=== PATIENT | female | born 1995 | race African-American/Black ===

== ENCOUNTER 2016-12-05 10:38 | Emergency (ER) | payer BC, OTHER ==
[~2016-12-05] VITALS: Ht 185.4 cm; Wt 104.3 kg
[~2016-12-05 10:38] MED LIST: APAP/CODEINE ELI5 M1 OR; FLINTSTONES M100 MCG; IBUPROFEN 600600 M1 PO; KEFLEX500 MG PO; MAALOX ADVANCE355 M1 PO; NORCO 5-325 TA1 EACH PO; PHENERGAN 25 MG25 M1 PO; PREDNISONE50 MG PO; VICODIN 5-5001 EACH PO; ZESTORETIC 10-1 EACH PO; ZOFRAN ODT4 MG PO; [UNRECOGNIZED DRUG - REMARK]
[2016-12-05] MEDS ORDERED: MOBIC15 MG PO (11:40)
[2016-12-05 11:58] VITALS: BP 145/86
== END 2016-12-05 11:59 | disposition home or self-care (01) ==
LOC: ER 10:38
DX: S63.502A Unspecified sprain of left wrist, initial encounter (principal); I10 Essential (primary) hypertension; Z91.010 Allergy to peanuts; W23.0XXA Caught, crushed, jammed, or pinched between moving objects, initial encounter; Y93.89 Activity, other specified; Y92.810 Car as the place of occurrence of the external cause; Y99.8 Other external cause status